=== PATIENT | male | born 1970 | race Caucasian/White ===

== ENCOUNTER 2023-08-16 10:24 | Day surgery (SDC) | payer BC ==
[2023-08-16 11:16] LABS: BASOPHILS ABSOLUTE AUTO 0.1 K/mm3 (0.0-0.2); BASOPHILS PERCENT AUTO 0.4 % (0.0-1.0); EOSINOPHILS PERCENT AUTO 0.2 % (0.0-6.0); HEMATOCRIT 46.7 % (42.0-52.0); IMMATURE GRAN ABSOLUTE AUTO 0.06 K/mm3 (0.00-0.05); IMMATURE GRAN PERCENT AUTO 0.3 % (0.0-0.4); LYMPHOCYTES ABSOLUTE AUTO 1.7 K/mm3 (1.0-4.8); LYMPHOCYTES PERCENT AUTO 9.5 % (24.0-44.0); MEAN CORPUSCULAR HEMOGLOBIN 29.5 pg (28.0-32.0); MEAN CORPUSCULAR HGB CONC 34.3 g/dl (32.0-36.0); MEAN CORPUSCULAR VOLUME 86.2 fl (83.0-99.0); MEAN PLATELET VOLUME 10.4 fl (9.4-12.4); MONOCYTES ABSOLUTE AUTO 0.7 K/mm3 (0.0-0.8); MONOCYTES PERCENT AUTO 4.1 % (0.0-8.0); NEUTROPHILS ABSOLUTE AUTO 14.8 K/mm3 (1.8-7.7); NEUTROPHILS PERCENT AUTO 85.5 % (41.0-71.0); PLATELET COUNT,PLT 235 K/mm3 (150-400); RED BLOOD CELL COUNT 5.42 M/mm3 (4.52-5.90); WHITE BLOOD CELL COUNT,WBC 17.35 K/mm3 (3.9-11.3)
[2023-08-16 11:34] LABS: APPEARANCE,URINE CLEAR (Clear); BILIRUBIN,URINE NEGATIVE (Negative); COLOR,URINE YELLOW (Yellow); GLUCOSE,URINE NEGATIVE (Negative); KETONES,URINE 2+ (Negative); LEUKOCYTE ESTERASE,URINE NEGATIVE (Negative); NITRITE,URINE NEGATIVE (Negative); OCCULT BLOOD,URINE NEGATIVE (Negative); PROTEIN,URINE 1+ (Negative); UROBILINOGEN,URINE 0.2 (0.2-1.0)
[2023-08-16 11:36] LABS: A/G RATIO 1.1 (1-2); ANION GAP 13.8 (5-15); BILIRUBIN TOTAL 0.9 mg/dL (0.2-1.0); BUN/CREATININE RATIO 7.7 (14-18); C-REACTIVE PROTEIN 1.73 mg/dL (<0.30); CALCIUM 9.4 mg/dL (8.5-10.1); CREATININE 1.3 mg/dL (0.7-1.3); EST CRCL DRUG DOSING (CG) 64.96 mL/min; POTASSIUM,K 3.8 mEq/L (3.5-5.1); PROTEIN TOTAL,TP 7.6 g/dl (6.4-8.2)
[2023-08-16] MEDS: Sodium Chloride 0.9% 1,000 ML IV STA (11:40)
[2023-08-16] MEDS: HYDROmorphone 0.5 MG/0.5 ML Syringe IVPUSH ONE ×2 (11:41→13:57)
[2023-08-16] MEDS: Ondansetron 4 MG/2 ML SDV IVPUSH ONE (11:41)
[2023-08-16] MEDS: Sodium Chloride 0.9% 10 ML Syringe FLUSH PRN ×2 (11:41→14:00)
[2023-08-16] MEDS: Iopamidol 612 MG/ML 100 ML Bottle IVPUSH ONE (12:42)
[2023-08-16 12:56] LABS: BACTERIA,URINE RARE /hpf (FEW); EPITHELIAL CELLS,URINE 0-5 /hpf (0-5); MUCUS,URINE NOT SEEN /hpf (FEW); RBC,URINE 0-5 /hpf (0-5); WBC,URINE 0-5 /hpf (0-5)
[2023-08-16] MEDS: Piperacillin/Tazobactam 4.5 GM in Sodium Chloride 0.9% 100 ML IV ONE (13:56)
[2023-08-16] MEDS ORDERED: Ondansetron 4 MG/2 ML SDV IVPUSH PRN (16:08)
[2023-08-16] MEDS ORDERED: fentaNYL 100 MCG/2 ML SDV IVPUSH PRN (16:08)
[2023-08-16] MEDS ORDERED: HYDROmorphone 0.5 MG/0.5 ML Syringe IVPUSH PRN (16:08)
[2023-08-16] MEDS ORDERED: Ketorolac 30 MG/ML SDV ONE (16:12)
[2023-08-16] MEDS ORDERED: Lidocaine 1% 5 ML VIAL ONE (16:12)
[2023-08-16] MEDS ORDERED: Sugammadex Sodium 200 MG/2 ML VIAL IV ONE (16:12)
[2023-08-16] MEDS ORDERED: Propofol 200 MG/20 ML SDV ONE (16:12)
[2023-08-16] MEDS ORDERED: Dexamethasone 4 MG/ML 5 ML MDV ONE (16:12)
[2023-08-16] MEDS ORDERED: fentaNYL 250 MCG/5 ML SDV ONE (16:12)
[2023-08-16] MEDS ORDERED: Rocuronium 50 MG/5 ML Vial ONE (16:12)
[2023-08-16] MEDS ORDERED: Ondansetron 4 MG/2 ML SDV ONE (16:39)
[2023-08-16] MEDS ORDERED: Lactated Ringers 1,000 ML IV ONE ×2 (16:39→17:15)
[2023-08-16] MEDS: Lidocaine 1% 30 ML SDV ONE (17:05)
[2023-08-16] MEDS: Bupivacaine 0.5% 30 ML SDV ONE (17:05)
[2023-08-16] MEDS: EPINEPHrine 1 MG/ML SDV ONE (17:05)
[2023-08-16] MEDS ORDERED: fentaNYL 100 MCG/2 ML SDV ONE ×2 (17:10→17:40)
== END 2023-08-16 20:40 | disposition home or self-care (01) ==
LOC: JD.ED 10:24 → JD.SDS 16:03
PROVIDERS: ATTEND Surgery
DX: K35.30 Acute appendicitis with localized peritonitis, without perforation or gangrene (principal)
CPT/HCPCS: 36415; 44970; 74177; 80053; 81001; 83690; 85025; 86140; 96361; 96365; 96366; 96375; 96376; 99285; J0171; J0665; J1100; J1170; J1596; J1885; J2405; J2543; J2704; J3010; J3490; J7030; J7120; Q9967; 00840; 99140

== ENCOUNTER 2025-02-06 02:16 | Emergency (ER) | payer BC ==
[2025-02-06] MEDS ORDERED: Sodium Chloride 0.9% 10 ML Syringe FLUSH PRN (02:55)
[2025-02-06 03:01] LABS: BASOPHILS ABSOLUTE AUTO 0.1 K/mm3 (0.0-0.2); BASOPHILS PERCENT AUTO 1.0 % (0.0-1.0); EOSINOPHILS ABSOLUTE AUTO 0.1 K/mm3 (0.0-0.4); EOSINOPHILS PERCENT AUTO 1.4 % (0.0-6.0); IMMATURE GRAN ABSOLUTE AUTO 0.02 K/mm3 (0.00-0.05); IMMATURE GRAN PERCENT AUTO 0.3 % (0.0-0.4); LYMPHOCYTES ABSOLUTE AUTO 2.6 K/mm3 (1.0-4.8); LYMPHOCYTES PERCENT AUTO 32.5 % (24.0-44.0); MEAN PLATELET VOLUME 11.3 fl (9.4-12.4); MONOCYTES ABSOLUTE AUTO 0.7 K/mm3 (0.0-0.8); MONOCYTES PERCENT AUTO 8.2 % (0.0-8.0); NEUTROPHILS ABSOLUTE AUTO 4.5 K/mm3 (1.8-7.7); NEUTROPHILS PERCENT AUTO 56.6 % (41.0-71.0); NRBC ABSOLUTE 0.00 (0.00-0.02); NRBC PERCENT 0.0 % (0.0-0.2); PLATELET COUNT,PLT 223 K/mm3 (150-400); RED BLOOD CELL COUNT 5.47 M/mm3 (4.52-5.90); WHITE BLOOD CELL COUNT,WBC 7.95 K/mm3 (3.9-11.3)
[2025-02-06] MEDS: Ketorolac 30 MG/ML SDV IVPUSH ONE (03:06)
[2025-02-06] MEDS: Ondansetron 4 MG/2 ML SDV IVPUSH ONE (03:08)
[2025-02-06 03:11] LABS: A/G RATIO 1.0 (1-2); ALANINE AMINOTRANSFERASE,ALT 42.0 U/L (16-63); ASPARTATE AMNIOTRANSFERASE,AST 19.0 U/L (15-37); BILIRUBIN TOTAL 0.4 mg/dL (0.2-1.0); BLOOD UREA NITROGEN,BUN 18.0 mg/dL (7-18); CARBON DIOXIDE,CO2 27.0 mEq/L (21-32); CHLORIDE,CL 104.0 mEq/L (98-107); CREATININE 1.5 mg/dL (0.7-1.3); EST CRCL DRUG DOSING (CG) 54.99 mL/min; ESTIMATED GFR 54.0 mL/min (>60); GLUCOSE RANDOM 116.0 mg/dL (70-99); POTASSIUM,K 3.5 mEq/L (3.5-5.1); PROTEIN TOTAL,TP 7.1 g/dl (6.4-8.2); SODIUM,NA 140.0 mEq/L (136-145)
== END 2025-02-06 04:33 | disposition home or self-care (01) ==
LOC: JD.ED 02:16
DX: K80.70 Calculus of gallbladder and bile duct without cholecystitis without obstruction (principal); Z79.899 Other long term (current) drug therapy; Z86.16 Personal history of COVID-19
CPT/HCPCS: 36415; 76705; 80053; 83690; 85025; 96361; 96374; 96375; 99284; J1885; J2405; J7030